=== PATIENT | female | born 1995 ===

== ENCOUNTER 2018-12-09 21:02 | Emergency (ER) | payer BC ==
--- NOTE | 2018-12-09 21:14 | UC ---
Throat Pain/Nasal Clay HPI - HPI Summary HPI Summary: 23 yo female presents with sore throat and fatigue. She tells me that 3 days ago she began to have a sore throat and feel very tired. She mentions that she has a long history of strep throat, but usually that starts with a fever and generalized stomach upset and this does not feel the same. She has been sleeping most of the weekend due to fatigue. She has been taking tylenol and ibuprofen with little relief. She has had a decreased appetite, but has eaten a granola bar and tolerating po well. Denies sinus symptoms, cough, SOB, chest pain, vomiting, diarrhea, dysuria. - History of Current Complaint Stated Complaint: THROAT COMPLAINT Time Seen by Provider: 12/09/18 21:14 Hx Obtained From: Patient Onset/Duration: Sudden Onset Severity: Mild Pain Intensity: 3 Pain Scale Used: 0-10 Numeric - Allergies/Home Medications Allergies/Adverse Reactions: Allergies Allergy/AdvReac Type Severity Reaction Status Date / Time No Known Allergies Allergy Verified 12/09/18 21:15 PMH/Surg Hx/FS Hx/Imm Hx - Additional Past Medical History Additional PMH: None - Surgical History Surgical History: None - Family History Known Family History: Positive: Non-Contributory - Social History Lives: Dormitory/Roommates Alcohol Use: Occasionally Substance Use Type: None Smoking Status (MU): Never Smoked Tobacco Review of Systems All Other Systems Reviewed And Are Negative: No Constitutional: Positive: Fever Skin: Positive: Rash Eyes: Positive: Negative ENT: Positive: Sore Throat Respiratory: Positive: Negative Cardiovascular: Positive: Negative Neurovascular: Positive: Negative Neurological: Positive: Negative Psychological: Positive: Negative Physical Exam - Summary Physical Exam Summary: GENERAL: NAD. WDWN. No pain distress. SKIN: No rashes, sores, lesions, or open wounds. HEENT: Head: AT/NC Eyes: Conjunctiva clear without inflammation or discharge. Ears: Hearing grossly normal. TMs intact, no bulging, erythema, or edema. Nose: Nasal mucosa pink and moist. NTTP maxillary and frontal sinus. Throat: Posterior oropharynx mild erythema and 2+ tonsillar enlargement. No exudates. Uvula midline. No hoarse voice or muffled voice. NECK: Supple. Mild tonsillar LAD NTTP. CHEST: CTAB. No r/r/w. No accessory muscle use. Breathing comfortably and in no distress. CV: RRR. Without m/r/g. Pulses intact. Cap refill <2seconds NEURO: Alert. PSYCH: Age appropriate behavior. Triage Information Reviewed: Yes Vital Signs: Vital Signs: Temp Pulse Resp BP Pulse Ox 99.8 F 85 16 102/57 100 12/09/18 21:10 12/09/18 21:10 12/09/18 21:10 12/09/18 21:10 12/09/18 21:10 Laboratory Tests 12/09/18 21:21 Group A Strep Rapid Negative Vital Signs Reviewed: Yes Throat Pain/Nasal Course/Dx - Course Course Of Treatment: POC strep negative. Suspect viral illness - possibly mono. Discussed this with pt and will draw for CMC, CMP, and monospot today. Recommend f/u in 2 days with [facility] for a recheck of her symptoms. Continue taking tylenol and ibuprofen as directed for symptoms. - Differential Dx/Diagnosis Provider Diagnosis: Fatigue, Tonsillitis Discharge ED - Sign-Out/Discharge Documenting (check all that apply): Patient Departure All imaging exams completed and their final reports reviewed: No Studies - Discharge Plan Condition: Stable Disposition: HOME Patient Education Materials: Mononucleosis (ED), Viral Syndrome (ED) Referrals: No Primary Care Phys,NOPCP [Primary Care Provider] - [facility] [Provider Group] - 2 Days Additional Instructions: If you develop a fever, shortness of breath, chest pain, new or worsening symptoms - please call your PCP or go to the ED immediately. Your strep test was negative. We have tested you for mono and should have results within 2 days. Rest and drink plenty of fluids. May take tylenol or ibuprofen as directed for discomfort. If your symptoms do not improve - please return here to be rechecked or go to [facility] - Billing Disposition and Condition Condition: STABLE Disposition: Home
[2018-12-10 11:38] LABS: Hematocrit 37 % (35-47); Hemoglobin 13.1 g/dL (12.0-16.0); Mean Corpuscular HGB Conc 35 g/dL (31-36); Mean Corpuscular Hemoglobin 31 pg (27-31); Mean Corpuscular Volume 88 fL (80-97); Mean Platelet Volume 9.1 fL (7.4-10.4); Platelet Count 134 10^3/uL (150-450); Red Blood Count 4.23 10^6 /uL (3.70-4.87); Red Cell Distribution Width 14 % (10-15); White Blood Count 2.2 10^3/uL (3.5-10.8)
[2018-12-10 12:00] LABS: Albumin 4.3 g/dL (3.2-5.2); Calcium 8.9 mg/dL (8.6-10.3); Total Bilirubin 1.6 mg/dL (0.2-1.0)
[2018-12-10 12:06] LABS: Albumin/Globulin Ratio 2.2 (1-3); BUN/Creatinine Ratio 16.1 (8-20); EGFR Non-African American 121.5 (>60); Total Protein 6.3 g/dL (6.4-8.9)
[2018-12-10 13:14] LABS: ABS Lymphocytes 0.6 10^3/ul (1.0-4.8); ABS Monocytes 0.2 10^3/ul (0-0.8); ABS Neutrophils 1.4 10^3/ul (1.5-7.7); Eosinophil % 1.4 %; Lymphocyte % 26.6 %; Nucleated Red Blood Cells % 0.6
--- NOTE | 2018-12-10 16:04 | UC ---
- Progress Note Progress Note: please notify pt of her blood work results low WBCs and low plts these can both be consistent with a viral illness she needs to follow up as directed and at some point will need blood work rechecked Course/Dx - Diagnoses Provider Diagnoses: Fatigue, Tonsillitis Discharge ED - Sign-Out/Discharge Documenting (check all that apply): Post-Discharge Follow Up All imaging exams completed and their final reports reviewed: No Studies - Discharge Plan Condition: Stable Disposition: HOME Patient Education Materials: Mononucleosis (ED), Viral Syndrome (ED) Referrals: [facility] [Provider Group] - 2 Days No Primary Care Phys,NOPCP [Primary Care Provider] - Additional Instructions: If you develop a fever, shortness of breath, chest pain, new or worsening symptoms - please call your PCP or go to the ED immediately. Your strep test was negative. We have tested you for mono and should have results within 2 days. Rest and drink plenty of fluids. May take tylenol or ibuprofen as directed for discomfort. If your symptoms do not improve - please return here to be rechecked or go to [facility] - Billing Disposition and Condition Condition: STABLE Disposition: Home
[2018-12-11 14:23] LABS: EBV Capsid Ag IgG Ab Negative (Negative); EBV Capsid Ag IgM Ab Negative (Negative); Epstein-Barr Nuclear Antigen Negative (Negative)
--- NOTE | 2018-12-11 17:43 | UC ---
- Progress Note Progress Note: neg EBV Igg, IgM no change olga 12/11/18 Course/Dx - Diagnoses Provider Diagnoses: Fatigue, Tonsillitis Discharge ED - Sign-Out/Discharge Documenting (check all that apply): Post-Discharge Follow Up All imaging exams completed and their final reports reviewed: No Studies - Discharge Plan Condition: Stable Disposition: HOME Patient Education Materials: Mononucleosis (ED), Viral Syndrome (ED) Forms: *School Release Referrals: [facility] [Provider Group] - 2 Days No Primary Care Phys,NOPCP [Primary Care Provider] - Additional Instructions: If you develop a fever, shortness of breath, chest pain, new or worsening symptoms - please call your PCP or go to the ED immediately. Your strep test was negative. We have tested you for mono and should have results within 2 days. Rest and drink plenty of fluids. May take tylenol or ibuprofen as directed for discomfort. If your symptoms do not improve - please return here to be rechecked or go to [facility] - Billing Disposition and Condition Condition: STABLE Disposition: Home
== END 2018-12-09 22:00 | disposition home or self-care (01) ==
LOC: UCEAST 21:02
DX: R53.83 Other fatigue (principal); J03.90 Acute tonsillitis, unspecified
CPT/HCPCS: 36415; 80053; 85025; 86308; 86664; 86665; 87651; 99201; G0463